=== PATIENT | female | born 1935 | race Caucasian/White ===

== ENCOUNTER 2021-04-11 18:14 | Inpatient (IN) | payer MEDICARE ==
[~2021-04-11] VITALS: Ht 157.5 cm; Wt 79.3 kg
[2021-04-11 19:25] LABS: HEMOGLOBIN 12.3 gm/dl (12.3-15.3); RED BLOOD COUNT 3.88 M/UL (4.00-5.10); WHITE BLOOD COUNT 4.2 K/UL (4.5-11.0)
[2021-04-12 05:19] LABS: HEMOGLOBIN 11.9 gm/dl (12.3-15.3); RED BLOOD COUNT 3.79 M/UL (4.00-5.10); WHITE BLOOD COUNT 3.5 K/UL (4.5-11.0)
[2021-04-12] MEDS ORDERED: BACTROBAN OINT22 GM TOP (11:30)
[2021-04-12] MEDS ORDERED: VASOTEC 10 MG T10 MG PO (11:31)
[2021-04-12] MEDS ORDERED: TRAMADOL HCL50 MG PO (11:32)
[2021-04-12] MEDS ORDERED: OMEPRAZOLE20 MG PO (11:33)
[2021-04-12] MEDS ORDERED: POTASSIUM CHLO10 ME1 PO (11:34)
[2021-04-12] MEDS ORDERED: FUROSEMIDE40 MG PO (11:35)
[2021-04-12] MEDS ORDERED: ROPINIROLE HCL3 MG PO (11:35)
[2021-04-12] MEDS ORDERED: VITAMIN D350 MC3 PO (11:37)
[2021-04-12] MEDS ORDERED: KENALOG CREAM 015 GM TOP (11:44)
[2021-04-12] MEDS ORDERED: ASPIRIN EC81 MG PO (11:46)
[2021-04-13 05:33] LABS: HEMOGLOBIN 12.5 gm/dl (12.3-15.3); RED BLOOD COUNT 3.99 M/UL (4.00-5.10); WHITE BLOOD COUNT 3.9 K/UL (4.5-11.0)
[2021-04-14] MEDS ORDERED: LEVOFLOXACIN750 MG PO (13:45)
== END 2021-04-15 13:15 | disposition home health service (06) | DRG 602 ==
LOC: ER1 18:14 → CDU 21:54 → M/S 21:54
PROVIDERS: Emergency Medicine; Internal Medicine; ADMIT Internal Medicine
PROC: B24BZZ4 Ultrasonography of Heart with Aorta, Transesophageal (ICD-10-PCS; principal; 2021-04-12)
DX: L03.115 Cellulitis of right lower limb (principal); I50.33 Acute on chronic diastolic (congestive) heart failure; N39.0 Urinary tract infection, site not specified; D61.818 Other pancytopenia; R18.8 Other ascites; I31.3 Pericardial effusion (noninflammatory); Z20.822 Contact with and (suspected) exposure to COVID-19; I48.0 Paroxysmal atrial fibrillation; R35.0 Frequency of micturition; R39.11 Hesitancy of micturition; R30.0 Dysuria; I11.0 Hypertensive heart disease with heart failure; G25.81 Restless legs syndrome; I73.9 Peripheral vascular disease, unspecified; E66.9 Obesity, unspecified; I08.2 Rheumatic disorders of both aortic and tricuspid valves; G51.0 Bell's palsy; I95.9 Hypotension, unspecified; B19.20 Unspecified viral hepatitis C without hepatic coma; Z96.652 Presence of left artificial knee joint; Z82.49 Family history of ischemic heart disease and other diseases of the circulatory system; Z86.19 Personal history of other infectious and parasitic diseases; Z79.01 Long term (current) use of anticoagulants; Z90.710 Acquired absence of both cervix and uterus; Z80.3 Family history of malignant neoplasm of breast; Z80.51 Family history of malignant neoplasm of kidney; Z80.1 Family history of malignant neoplasm of trachea, bronchus and lung; Z83.3 Family history of diabetes mellitus; Z88.8 Allergy status to other drugs, medicaments and biological substances; Z68.36 Body mass index [BMI] 36.0-36.9, adult; Z79.82 Long term (current) use of aspirin
CPT/HCPCS: ECHO; 36415; 71045; 76705; 80048; 80053; 80061; 80202; 81001; 82550; 82553; 83036; 83605; 83690; 83735; 83874; 83880; 84100; 84439; 84443; 84484; 84550; 85025; 85027; 85610; 85730; 86140; 87040; 87077; 87086; 87186; 93005; 93306; 96374; 96375; 99284; J0696; J1335; J1650; J1940; J2185; J3370; J7030; J7070; U0002